=== PATIENT | male | born 1995 | race Caucasian/White ===

== ENCOUNTER 2020-09-17 13:11 | Emergency (ER) | payer SELFPAY ==
[2020-09-17 13:14] VITALS: BP 100/52; PULSE 75; RESP 18; TEMP 36.8; O2SAT 96
--- NOTE | 2020-09-17 13:26 | PC.NURSE ---
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 Pt is calm and cooperative, drowsy but easily arousable, AOx3 States I take $200 of Fentanyl a day, my ex's sugar daddy gives us money Swerved out of the way of another car (was seeing his dealer), then pulled over by copper plate lithographer I didn't even take the drugs yet , then car was searched. Was taken to police station pt states they said they weren't going to take me due to the drugs in my system and sent to ED
--- NOTE | 2020-09-17 14:22 | ED.GENADULT ---
HPI - General Adult General Chief complaint: Overdose Stated complaint: OD Time Seen by Provider: 09/17/20 13:15 Source: patient Mode of arrival: ambulatory Limitations: no limitations History of Present Illness HPI narrative: Patient presents for evaluation after he was detained by law enforcement just prior to arrival. He states he has a longstanding history of drug abuse specifically fentanyl and Xanax. He indicates that he takes 90 capsules of fentanyl every 3 days and consumes at least 10 mg of Xanax daily. He states he has never used medications intravenously. Today he was detained by law enforcement and was provided with option to go to intermediate or the hospital. He elected to come to the hospital. On my initial examination pt has no physical complaints. He is requesting a script for xanax or valium. No SI, HI, AH, VH. He lives with his father. He states he used fentanyl and Xanax just prior to his presentation. Related Data Allergies Allergy/AdvReac Type Severity Reaction Status Date / Time No Known Allergies Allergy Verified 09/17/20 13:31 Review of Systems Review of Systems: Narrative: CONSTITUTIONAL: Denies fever, chills, or sweats. EYES: Denies visual changes, redness, or discharge. ENT: Denies rhinorrhea, congestion, sore throat, or otalgia. CARDIOVASCULAR: Denies chest pain, palpitations, or edema. RESPIRATORY: Denies cough or dyspnea. GASTROINTESTINAL: Denies abdominal pain, nausea, vomiting, or diarrhea. GENITOURINARY: Denies dysuria or hematuria. SKIN: Denies rash or itching. MUSCULOSKELETAL: Denies back pain, joint pain, or myalgia. NEUROLOGIC: Denies headache, numbness, dizziness, or weakness. PSYCHIATRIC: Denies anxiety or depression. [facility] Past Medical History Medical History Anxiety Substance abuse Surgical History Surgical History No pertinent past surgical history No pertinent past surgical history Family History Family History Mother Mental health disorder Father Mental health disorder Social History Social History Smoking status: Current every day smoker Additional smoking assessment comments: 1 PPD Alcohol intake: never Substance use: current Substance use type: sedatives and opiates Living arrangements: with family Gender identity (if verbalized by the patient): Male Sexual Orientation (if Verbalized by the Patient): Straight or Heterosexual Spiritual care concerns: No Exam Narrative: Exam Narrative: GENERAL: Well-appearing, well-nourished, and in no acute distress. HEAD: Normocephalic, atraumatic. EYES: PERRLA and EOMI. ENT: Nares clear, no rhinorrhea or epistaxis. Mucous membranes moist. Oropharynx without tonsillar hypertrophy exudate or other lesions. Bilateral TMs pearly mendoza nonbulging NECK: Supple. No adenopathy or masses. No carotid bruits or JVD CHEST: Clear to auscultation. No respiratory distress. No wheezes rales or rhonchi HEART: Regular rate and rhythm. No murmur heard. Normal peripheral pulses. ABDOMEN: Soft, nontender, nondistended, normal active bowel sounds. EXTREMITIES: Normal range of motion. No edema. SKIN: Linear scars noted to left wrist which are without any evidence of infection NEURO: No focal deficits. Alert and oriented x3. PSYCH: Normal mood and affect. Course Course Emergency Course: This is 24 yr old male who presents for medical screening examination after being detained by law enforcement with opiates and xanax in his possession. He is alert and oriented x 3. He has no physical complaints. He has no SI, HI, AH, VH. He is medically stable. He is fit for discharge. We will provide him with follow-up recommendations with psychiatry and for substance abuse. He was advised to avoid illicit
--- NOTE | 2020-09-17 14:32 | ECG_ITS ---
Measurements Intervals [place] Rate: 74 P: 32 [place]: 155 QRS: 33 QRSD: 99 T: 41 QT: 397 QTc: 442 Interpretive Statements SINUS RHYTHM POSSIBLE LEFT ATRIAL ENLARGEMENT INCOMPLETE RIGHT BUNDLE BRANCH BLOCK BASELINE ARTIFACT- I, II, III BORDERLINE ECG Electronically Signed On 09-17-2020 19:59:39 CDT by Bryan Jordan D.O.
[2020-09-17 14:38] VITALS: BP 116/88; PULSE 86; RESP 16; O2SAT 100
--- NOTE | 2020-09-17 14:38 | PC.NURSE ---
Pt ambulating around room, per ED [employer] ok to d/c. Pt has remained calm and cooperative, AOx3 and clear speech, non-labored respirations
--- NOTE | 2020-09-17 15:01 | PC.NURSE ---
Pt ambulating steady gait in room, using personal cellphone to call for a ride. Calm and cooperative, denies SI/HI. Pt is to report to [facility]
== END 2020-09-17 15:15 | disposition home or self-care (01) ==
PROVIDERS: Emergency Provider Nurse Practitioner; PCP Family Medicine
DX: F11.10 Opioid abuse, uncomplicated (principal); F13.10 Sedative, hypnotic or anxiolytic abuse, uncomplicated; R94.31 Abnormal electrocardiogram [ECG] [EKG]
CPT/HCPCS: 93005; 99283